=== PATIENT | female | born 1975 | race Caucasian/White ===

== ENCOUNTER 2016-05-19 15:25 | Emergency (ER) | payer MEDICAID ==
[2016-05-19 15:26] VITALS: BMI 24.0
[2016-05-19] MEDS ORDERED: KETOROLAC TROMETHAMINE 10 MG TAB PO ONE (16:12)
[2016-05-19 16:20] VITALS: BP 122/69; PULSE 68; TEMP 97.9
[2016-05-19 16:20] LABS: ALL NEG? NO
[2016-05-19 16:31] LABS: MDMA* NEG (NEGATIVE); METHAMPHETAMINES NEG (NEGATIVE); OXYCODONE NEG (NEGATIVE)
[2016-05-19 16:32] LABS: LEUKOCYTES/URINE NEG (NEGATIVE); NITRITE/URINE NEG (NEGATIVE); URINE OCCULT BLOOD 1+ (NEG/TRACE); WBC/URINE 0-2 (0-5)
--- NOTE | 2016-05-19 16:35 | EDPRACDOC ---
- General Information Chief Complaint: Back Pain Stated Complaint: BACK Time Seen by Provider: 05/19/16 16:03 Information Source: Patient Mode Of Arrival: Car Home Medications: Home Medications Bupropion HCl [Wellbutrin Xl] 150 mg PO DAILY 01/28/15 Hydroxyzine HCl 10 mg PO HS 01/28/15 Cyclobenzaprine HCl [Flexeril] 10 mg PO TID #21 tab 05/19/16 Meloxicam [Mobic] 7.5 mg PO BID #20 tab 05/19/16 Allergies/Adverse Reactions: Allergies Allergy/AdvReac Type Severity Reaction Status Date / Time adhesive tape Allergy Unknown REDNESS,BLI Verified 05/19/16 16:20 STERS latex [Latex] Allergy Unknown SWELLING Verified 05/19/16 16:20 - History of Present Illness Onset: 4-5 days HPI: PT PRESENTS TODAY WITH LOW BACK PAIN X 4 DAYS. PT STATES THAT SHE "KNOWS ITS HER KIDNEYS", ALTHOUGH DENIES FEVER, DYSURIA. STATES SHE "THOUGHT SHE SAW SOME BLOOD" IN HER URINE A FEW DAYS AGO. NO PMH OF KIDNEY STONES. NO APPARENT DISTRESS. Pain Location: Reports: Bilateral, Lumbar Pain Radiates To: Reports: None Pain Caused By: Reports: Spontaneous Relevant History: Reports: None Currently ?: No Pain Severity: Reports: Moderate Pain Quality: Reports: Aching Worsened By: Reports: Movement, Walking Associated Signs and Symptoms: Reports: None ED Past Medical History - History Reviewed Yes Nurses notes reviewed and agree except as marked - Patient Medical History GI/ History: Reports: Urinary Tract Infection Psychological History: Reports: Depression, Anxiety. Denies: Schizophrenia, Bipolar Disorder Systemic History: Denies: Cancer, Anemia, Lupus Surgical History: Reports: Cholecystectomy. Denies: Hysterectomy - Family Medical History Reports: Hypertension, Diabetes (father; paternal grandparent), Cancer, Cardiac Disorders. Denies: Stroke - Social Medical History Smoking Status: Heavy tobacco smoker (5 or more cigarettes/day or daily pipe/ cigar) EDM Review of Systems - Review of Systems ROS Negative Except as Marked: Yes All systems reviewed and were negative except as marked Constitutional: No Symptoms Reported Respiratory: No Symptoms Reported Cardiovascular: No Symptoms Reported Gastrointestinal: No Symptoms Reported Genitourinary: Hematuria Neurological: No Symptoms Reported Musculoskeletal: Back Integumentary: No Symptoms Reported - Physical Exam Constitutional: Alert (Awake), No apparent distress Oriented to: Time, Person, Place Last recorded Vital Signs: Last Vital Signs Temp 97.9 F 05/19/16 16:09 Pulse 68 05/19/16 16:09 Resp 18 05/19/16 16:09 BP 122/69 05/19/16 16:09 Pulse Ox 98 05/19/16 16:09 Oxygen Pulse Oxygen Saturation 98 O2 Device Room Air Oxygen Flow Rate Fraction of Inspired Oxygen ( FIO2) - HEENT Head: Normal Eye Exam: Normal Neck: Normal, Denies Pain, Midline - Respiratory/Cardiovascular Respiratory: Normal - CTA Cardiovascular: Normal - GI Palpation: Normal Tenderness: Non tender - Musculoskeletal Back: Lumbar TTP, No Palpable Step-off Extremities: Normal - Integumentary Skin: Normal Lymphatics: Normal - Neurologic Cerebellar: Normal Mood Description: Normal Thought: Coherent Perception: Normal - Results Urine Test Neg (NEGATIVE) 05/19/16 15:25 Urine Opiates Screen Neg (NEGATIVE) 05/19/16 15:25 Ur Oxycodone Screen Neg (NEGATIVE) 05/19/16 15:25 Urine Methadone Screen Neg (NEGATIVE) 05/19/16 15:25 Ur Barbiturates Screen Neg (NEGATIVE) 05/19/16 15:25 Ur Tricyclics Screen Neg (NEGATIVE) 05/19/16 15:25 Ur Phencyclidine Scrn Neg (NEGATIVE) 05/19/16 15:25 Ur Amphetamines Screen Neg (NEGATIVE) 05/19/16 15:25 U Methamphetamines Scrn Neg (NEGATIVE) 05/19/16 15:25 Urine MDMA Screen Neg (NEGATIVE) 05/19/16 15:25 U Benzodiazepines Scrn *positive* (NEGATIVE) H 05/19/16 15:25 Urine Cocaine Screen Neg (NEGATIVE) 05/19/16 15:25 Ur THC Screen *positive* (NEGATIVE) H 05/19/16 15:25 Lab Results 05/19/16 05/19/16 15:25 15:25 Urine Test Neg Urine Opiates Screen Neg Ur Oxycodone Screen Neg Urine Methadone Screen Neg Ur Barbiturates Screen Neg Ur Tricyclics Screen Neg Ur Phencyclidine Scrn Neg Ur Amphetamines Screen Neg U Methamphetamines Scrn Neg Urine MDMA Screen Neg U Benzodiazepines Scrn *positive* H Urine Cocaine Screen Neg Ur THC Screen *positive* H Decision Time to Discharge: 16:53 - Departure Disposition: Home Condition: Good Final Diagnosis: Acute low back pain Instructions: Acute Low Back Pain (ED) Education/Counseling Given To: Patient Education/Counseling Given Regarding: Diagnosis, Treatment, Follow Up Referrals: Asif Olivares MD [Primary Care Provider] - One Week Prescriptions: New Cyclobenzaprine HCl [Flexeril] 10 mg PO TID #21 tab Meloxicam [Mobic] 7.5 mg PO BID #20 tab No Action Bupropion HCl [Wellbutrin Xl] 150 mg PO DAILY Hydroxyzine HCl 10 mg PO HS Additional Instructions: HEATING PADS FOR ADDITIONAL RELIEF. TRY NOT TO LIFT MORE THAN 10 LBS FOR 10 DAYS. IF SYMPTOMS PERSIST, FOLLOW UP WITH PCP.
== END 2016-05-19 17:10 | disposition home or self-care (01) ==
LOC: EDMC 15:25
DX: M54.5 Low back pain (principal); F17.200 Nicotine dependence, unspecified, uncomplicated
CPT/HCPCS: 80307; 81001; 81025; 99282; J3490